=== PATIENT | female | born 1945 | race Caucasian/White ===

== ENCOUNTER 2022-11-07 03:32 | Emergency (ER) | payer MEDICARE ==
[2022-11-07] MEDS ORDERED: MORPHINE SULFATE 4 MG/ML SYRINGE IVP PRN (04:03)
[2022-11-07] MEDS ORDERED: SODIUM CHLORIDE 0.9% 1,000 ML IV STA (04:03)
[2022-11-07] MEDS ORDERED: ONDANSETRON 4 MG/2 ML VIAL IVP STA (04:03)
--- NOTE | 2022-11-07 04:07 | ED ---
General Adult HPI - General Source: family Mode of arrival: wheelchair Limitations: no limitations <Piter Castillo - Last Filed: 11/07/22 06:47> <All Brown - Last Filed: 11/07/22 08:01> - General Chief complaint: Abdominal Pain Stated complaint: abd pain Time Seen by Provider: 11/07/22 03:46 - History of Present Illness Initial comments: Dictation was produced using [employer] dictation software. please excuse any grammatical, word or spelling errors. Chief Complaint: 77-year-old female presents to the ER for abdominal pain and vomiting History of Present Illness: 77-year-old female she vacationed in [place] recently she just flew back couple days ago. Patient drove with other ind ividuals who has not had any symptoms. Patient complaining of severe lower abdominal pain. She states that she feels like she has an obstruction. Patient denies any history of bowel obstruction or ileus. She has had kidney stones. States that she also had pain in her back. Denies any fever constitutional symptoms. Emesis is nonbloody and nonbilious The ROS documented in this emergency department record has been reviewed and confirmed by me. Those systems with pertinent positive or negative responses have been documented in the HPI. All other systems are other negative and/or noncontributory. (Piter Castillo) - Related Data Home Medications Medication Instructions Recorded Confirmed Gabapentin [Neurontin] 600 mg PO TID 11/07/22 11/07/22 RABEprazole SODIUM [Aciphex] 20 mg PO DAILY 11/07/22 11/07/22 Previous Rx's Medication Instructions Recorded Ondansetron Odt [Zofran Odt] 4 mg PO Q8HR PRN 2 Days #6 tab 11/07/22 Tamsulosin HCl [Flomax] 0.4 mg PO DAILY 10 Days #10 capsule 11/07/22 Allergies Allergy/AdvReac Type Severity Reaction Status Date / Time codeine Allergy Unknown Verified 11/07/22 07:58 Review of Systems ROS Other: All systems not noted in ROS Statement are negative. <Piter Castillo - Last Filed: 11/07/22 06:47> ROS Other: All systems not noted in ROS Statement are negative. <All Brown - Last Filed: 11/07/22 08:01> ROS Statement: Those systems with pertinent positive or pertinent negative responses have been documented in the HPI. Past Medical History Past Medical History: Unable to Obtain History of Any Multi-Drug Resistant Organisms: Unobtainable Past Surgical History: Unable to Obtain Past Psychological History: Unable to Obtain Smoking Status: Vaper Past Alcohol Use History: Unable to Obtain Past Drug Use History: Unable to Obtain <Piter Castillo - Last Filed: 11/07/22 06:47> General Exam Limitations: no limitations <Piter Castillo - Last Filed: 11/07/22 06:47> - General Exam Comments Initial Comments: PHYSICAL EXAM: General Impression: Alert and oriented x3, not in acute distress HEENT: Normocephalic atraumatic, extra-ocular movements intact, pupils equal and reactive to light bilaterally, mucous membranes moist. Cardiovascular: Heart regular rate and rhythm Chest: Able to complete full sentences, no retractions, no tachypnea Abdomen: abdomen soft, palpatory tenderness to the lower abdomen, non-distended, no organomegaly Musculoskeletal: Pulses present and equal in all extremities, no peripheral edema Motor: no focal deficits noted Neurological: CN II-XII grossly intact, no focal motor or sensory deficits noted Skin: Intact with no visualized rashes Psych: Normal affect and mood (Piter Castillo) Course Vital Signs 11/07/22 11/07/22 03:42 06:04 Temperature 97.7 F 98.7 F Pulse Rate 70 62 Respiratory 18 13 Rate Blood Pressure 114/71 O2 Sat by Pulse 99 97 Oximetry Medical Decision Making - Lab Data Result diagrams: 11/07/22 03:53 11/07/22 03:53 <Piter Castillo - Last Filed: 11/07/22 06:47> - Lab Data Result diagrams: 11/07/22 03:53 11/07/22 03:53 <All Brown - Last Filed: 11/07/22 08:01> - Medical Decision Making Was pt. sent in by a medical professional or institution (, PA, WELDING MACHINE OPERATOR HELPER [employer], urgent care, hospital, or custodial...) When possible be specific @ -[No] Did you speak to anyone other than the patient for history (EMS, parent, family, police, friend...)? What history was obtained from this source @ -[No] Did you review nursing and triage notes (agree or disagree)? Why? @ -[I reviewed and agree with nursing and triage notes] Were old charts reviewed (outside hosp., previous admission, EMS record, old EKG, old radiological studies, urgent care reports/EKG's, custodial records)? Report findings @ -[No old charts were reviewed] Differential Diagnosis (chest pain, altered mental status, abdominal pain women, abdominal pain men, vaginal bleeding, musculoskeletal, weakness, fever, dyspnea, syncope, headache, dizziness, GI bleed, back pain, seizure, CVA, palpatations, mental health)? @ -Differential Abdominal Pain Women: Appendicitis, Cholecystitis, diverticulosis, ischemic bowel, pancreatitis, hepat itis, UTI, gastroenteritis, AAA, incarcerated hernia, bowel obstruction, constipation, inflammatory bowel, hepatitis, peptic ulcer disease, splenic infarction, perforated viscus, vulvitis, ovarian torsion, PID, kidney stone, placenta abruption, this is not meant to be an all-inclusive list EKG interpreted by me (3pts min.). @ -[None done] X-rays interpreted by me (1pt min.). @ -[None done] CT interpreted by me (1pt min.). @ - U/S interpreted by me (1pt. min.). @ -[None done] What testing was considered but not performed or refused? (CT, X-rays, U/S, labs)? Why? @ -[None] What meds were considered but not given or refused? Why? @ -[None] Did you discuss the management of the patient with other professionals (professionals i.e. , PA, WELDING MACHINE OPERATOR [employer], lab, RT, psych nurse, hospital social worker, fluid dynamicist, teacher, business services officer, egg caser)? Give summary @ -[No] Was smoking cessation discussed for >3mins.? @ -[No] Was critical care preformed (if so, how long)? @ -[No] Were there social determinants of health that impacted care today? How? (Teodora elessness, low income, unemployed, alcoholism, drug addiction, transportation, low edu. Level, literacy, decrease access to med. care, care home, rehab)? @ -[No] Was there de-escalation of care discussed even if they declined (Discuss DNR or withdrawal of care, Hospice)? DNR status @ -[No] What co-morbidities impacted this encounter? (DM, HTN, Smoking, COPD, CAD, Cancer, CVA, ARF, Chemo, Hep., AIDS, mental health diagnosis, sleep apnea, morbid obesity)? @ -[None] Was patient admitted / discharged? Hospital course, mention meds given and route, prescriptions, significant lab abnormalities, going to OR and other pertinent info. @ -77-year-old feel presents emergency department for acute onset suprapubic abdominal pain associated with nausea. Vital signs upon arrival are within acceptable limits. Patient treated with analgesics and antiemetics. Labs shows no leukocytosis. Metabolic panel is unremarkable. CT imaging ordered pending radiology read. Patient is signed out to Dr. Brown for follow-up of pending urinalysis and CT radiology read. (Piter Castillo) Patient signed out to me pending results of CT imaging. Presented with suprapubic abdominal pain, constipation. Patient's laboratory studies are unremarkable. CT imaging returned and was interpreted by me as revealing a left 3 mm ureteral lithiasis at the UPJ. Mild hydronephrosis. No other obvious acute findings. On reevaluation, patient's pain has resolved. She is feeling well. We discussed results. She'll be discharged home with a strainer, Flomax, and ODT Zofran as well as a starter pack and Tylenol threes. She is from [place] and will follow-up with her PCP when she returns there. She was otherwise in agreement with the plan and understand she has a ureterolithiasis. She will attempt his [id number] analgesic medications for pain control prior to using Tylenol threes. She was in agreement this plan for discharge. I will provide the patient with a prescription for Flomax, ODT Zofran. I instructed the patient to follow up with their PCP in the next 1-3 days. I provided contact information for follow up with urology. I explained that the patient should return to the emergency department if they experience any worsening symptoms. Strict return precautions were discussed with the patient. The patient expressed understanding of these instructions. I answered all questions that the patient had. The patient was discharged home in good condition with their prescriptions and follow up information. Diagnosis/symptom? @ -Left ureteral lithiasis Acute, or Chronic, or Acute on Chronic? @ -Acute Uncomplicated (without systemic symptoms) or Complicated (systemic symptoms)? @ -Complicated Side effects of treatment? @ -none Exacerbation, Progression or Severe Exacerbation @ -no Poses a threat to life or bodily function? @ -no (All Brown) - Lab Data Lab Results 11/07/22 11/07/22 11/07/22 Range/Units 03:53 03:53 06:00 WBC 9.3 (3.8-10.6) k/uL RBC 4.73 (3.80-5.40) m/uL Hgb 14.9 (11.4-16.0) gm/dL Hct 44.7 (34.0-46.0) % MCV 94.5 (80.0-100.0) fL MCH 31.6 (25.0-35.0) pg MCHC 33.4 (31.0-37.0) g/dL RDW 13.0 (11.5-15.5) % Plt Count 187 (150-450) k/uL MPV 8.1 Neutrophils % 73 % Lymphocytes % 18 % Monocytes % 5 % Eosinophils % 3 % Basophils % 0 % Neutrophils # 6.7 (1.3-7.7) k/uL Lymphocytes # 1.7 (1.0-4.8) k/uL Monocytes # 0.5 (0-1.0) k/uL Eosinophils # 0.3 (0-0.7) k/uL Basophils # 0.0 (0-0.2) k/uL Sodium 139 (137-145) mmol/L Potassium 4.6 (3.5-5.1) mmol/L Chloride 104 (98-107) mmol/L Carbon Dioxide 26 (22-30) mmol/L Anion Gap 9 mmol/L BUN 19 H (7-17) mg/dL Creatinine 0.82 (0.52-1.04) mg/dL Est GFR (CKD-EPI)AfAm 80 (>60 ml/min/1.73 sqM) Est GFR (CKD-EPI)NonAf 69 (>60 ml/min/1.73 sqM) Glucose 157 H (74-99) mg/dL Calcium 9.9 (8.4-10.2) mg/dL Total Bilirubin 0.7 (0.2-1.3) mg/dL AST 21 (14-36) U/L ALT 17 (4-34) U/L Alkaline Phosphatase 88 (38-126) U/L Total Protein 6.5 (6.3-8.2) g/dL Albumin 4.3 (3.5-5.0) g/dL Lipase 173 (23-300) U/L Urine Color Colorless Urine Appearance Clear (Clear) Urine pH 7.0 (5.0-8.0) Ur Specific Biddle 1.019 (1.001-1.035) Urine Protein Negative (Negative) Urine Glucose (UA) Negative (Negative) Urine Ketones Negative (Negative) Urine Blood Negative (Negative) Urine Nitrite Negative (Negative) Urine Bilirubin Negative (Negative) Urine Urobilinogen <2.0 (<2.0) mg/dL Ur Leukocyte Esterase Negative (Negative) Disposition <Piter Castillo - Last Filed: 11/07/22 06:47> Is patient prescribed a controlled substance at d/c from ED?: No Time of Disposition: 07:51 <All Brown - Last Filed: 11/07/22 08:01> Clinical Impression: Ureterolithiasis Disposition: HOME SELF-CARE Condition: Good Instructions (If sedation given, give patient instructions): Kidney Stones (ED) Prescriptions: Tamsulosin HCl [Flomax] 0.4 mg PO DAILY 10 Days #10 capsule Ondansetron Odt [Zofran Odt] 4 mg PO Q8HR PRN 2 Days #6 tab PRN Reason: Nausea Referrals: None,Stated [Primary Care Provider] - 1-2 days Suleiman Dawkins MD [STAFF PHYSICIAN] - 1-2 days
[2022-11-07 04:08] LABS: Basophils % (A) 0 %; Eosinophils # (A) 0.3 k/uL (0-0.7); Eosinophils % (A) 3 %; HCT 44.7 % (34.0-46.0); HGB 14.9 gm/dL (11.4-16.0); Lymphocytes # (A) 1.7 k/uL (1.0-4.8); Lymphocytes % (A) 18 %; MCH 31.6 pg (25.0-35.0); MCHC 33.4 g/dL (31.0-37.0); MCV 94.5 fL (80.0-100.0); Mean Platelet Volume 8.1; Monocytes # (A) 0.5 k/uL (0-1.0); Monocytes % (A) 5 %; Neutrophils # (A) 6.7 k/uL (1.3-7.7); Neutrophils % (A) 73 %; Platelet Count 187 k/uL (150-450); RBC 4.73 m/uL (3.80-5.40); WBC 9.3 k/uL (3.8-10.6)
[2022-11-07 04:18] LABS: ALT 17 U/L (4-34); AST 21 U/L (14-36); African American GFR (CKD) 80 (>60 ml/min/1.73 sqM); Albumin 4.3 g/dL (3.5-5.0); Alkaline Phosphatase 88 U/L (38-126); Anion Gap 9 mmol/L; Blood Urea Nitrogen 19 mg/dL (7-17); Calcium 9.9 mg/dL (8.4-10.2); Carbon Dioxide 26 mmol/L (22-30); Chloride 104 mmol/L (98-107); Glucose 157 mg/dL (74-99); Lipase 173 U/L (23-300); Non-African American GFR(CKD) 69 (>60 ml/min/1.73 sqM); Potassium 4.6 mmol/L (3.5-5.1); Sodium 139 mmol/L (137-145); Total Bilirubin 0.7 mg/dL (0.2-1.3); Total Protein 6.5 g/dL (6.3-8.2)
[2022-11-07 06:05] VITALS: TEMP 98.7
[2022-11-07 06:52] LABS: Appearance,Urine Clear (Clear); Bilirubin,Urine Negative (Negative); Blood,Urine Negative (Negative); Color,Urine Colorless; Glucose,Urine (UA) Negative (Negative); Ketones,Urine Negative (Negative); Leukocyte Esterase,Urine Negative (Negative); Nitrite,Urine Negative (Negative); Protein,Urine Negative (Negative); Specific Gravity,Urine 1.019 (1.001-1.035); Urobilinogen,Urine <2.0 mg/dL (<2.0)
--- NOTE | 2022-11-07 07:22 | CT ---
EXAMINATION TYPE: CT abdomen pelvis w con DATE OF EXAM: 11/07/2022 COMPARISON: none HISTORY: suprapubic abdominal pain, severe CONTRAST: CT scan of the abdomen and pelvis is performed without Oral Contrast and with IV Contrast, patient in jected with 100 mL of Isovue 300. FINDINGS: LUNG BASES-: No visible nodule. No infiltrate. LIVER/GB: Cholecystectomy changes are noted. Small cyst near the dome of the liver measuring less t crowley 1 cm. Postoperative intra and extrahepatic biliary ductal prominence. No space occupying hepatic lesion. PANCREAS: No inflammation. No distinct mass. SPLEEN: No splenic enlargement. No lesion seen. ADRENALS: No nodule. No thickening. KIDNEYS/BLADDER: There is a 3 mm calculus left UPJ resulting in mild left-sided hydronephrosis. No ad ditional calculi seen on this contrast-enhanced study. No distinct renal mass. Urinary bladder gross ly unremarkable. BOWEL: Normal appendix. Normal bowel caliber. No inflammation. GENITAL ORGANS: No gross abnormality. LYMPH NODES: No greater than 1cm abdominal or pelvic lymph nodes are appreciated. AORTA: No significant abnormality. OSSEOUS STRUCTURES: No significant abnormality is seen. OTHER: No significant additional abnormality is seen. IMPRESSION: 1. There is a 3 mm calculus left UPJ resulting in mild left-sided hydronephrosis.
[2022-11-07] MEDS ORDERED: TAMSULOSIN 0.4 MG CAP.ER.24H PO STA (07:52)
[2022-11-07] MEDS ORDERED: ACET/COD 300 MG/30 MG STARTER PACK 6 TAB BTL PO STA (07:54)
[2022-11-07 08:25] VITALS: BP 149/60; PULSE 87; RESP 18
== END 2022-11-07 08:25 | disposition home or self-care (01) ==
LOC: EC 03:32
DX: N13.2 Hydronephrosis with renal and ureteral calculous obstruction (principal); F17.290 Nicotine dependence, other tobacco product, uncomplicated; Z88.5 Allergy status to narcotic agent
CPT/HCPCS: 36415; 80053; 83690; 85025; 81003; 74177; 99284; 96374; 96375; 96361 ×3; J2270; J2405; Q9967